=== PATIENT | female | born 2000 | race Caucasian/White ===

== ENCOUNTER 2020-11-21 11:55 | Emergency (ER) | payer OTHER ==
[~2020-11-21] VITALS: Ht 149.9 cm; Wt 63.0 kg
[2020-11-21] MEDS ORDERED: DEXT10TA4 PO (11:58)
[2020-11-21] MEDS ORDERED: KETOROLAC 30MG/ML VIAL IV STA (12:10)
[2020-11-21 12:33] LABS: BASOPHILS % 0.3 % (0.0-2.0); EOSINOPHILS % 0.6 % (0.0-5.0); HEMATOCRIT. 40.8 % (36.0-48.0); HEMOGLOBIN. 14.3 g/dL (12.0-16.0); LYMPHOCYTES % 26.8 % (20.0-50.0); MEAN CORPUSCULAR HEMOGLOBIN 32.4 pg (28.0-32.0); MEAN CORPUSCULAR VOLUME 92.3 fL (81.0-99.0); MEAN PLATELET VOLUME 6.7 fl (7.4-10.4); MONOCYTES % 5.9 % (2.0-8.0); NEUTROPHILS % 66.4 % (40.0-76.0); PLATELET 389 x1000/uL (130-400); RED BLOOD CELL COUNT 4.42 mill/uL (4.2-5.4); RED CELL DISTRIBUTION WIDTH 15.1 % (11.6-14.6)
[2020-11-21 12:38] LABS: CHLORIDE 104 mEq/L (98-107)
[2020-11-21 12:45] LABS: HCG SCREEN NEGATIVE
[2020-11-21 14:24] VITALS: BP 129/79
== END 2020-11-21 14:26 | disposition home or self-care (01) ==
LOC: ER 11:55
DX: R07.89 Other chest pain (principal); F12.10 Cannabis abuse, uncomplicated; Z88.3 Allergy status to other anti-infective agents
CPT/HCPCS: 36415; 71045; 80053; 84703; 85025; 96374; 99284; J1885

== ENCOUNTER 2020-11-21 20:04 | Emergency (ER) | payer OTHER ==
[~2020-11-21] VITALS: Ht 149.9 cm; Wt 63.0 kg
[~2020-11-21 20:04] MED LIST: DEXT10TA4 PO
[2020-11-21] MEDS ORDERED: ONDANSETRON HCL 4MG/2ML INJ IV STA (22:36)
[2020-11-21] MEDS ORDERED: LORAZEPAM 2MG/ML CPJ IV STA (22:36)
[2020-11-21] MEDS ORDERED: SODIUM CHLORIDE 0.9% 1,000 ML IV ONE (22:45)
[2020-11-21 23:39] LABS: BASOPHILS % 0.3 % (0.0-2.0); EOSINOPHILS % 0.3 % (0.0-5.0); HEMATOCRIT. 37.2 % (36.0-48.0); HEMOGLOBIN. 13.1 g/dL (12.0-16.0); LYMPHOCYTES % 21.8 % (20.0-50.0); MEAN CORPUSCULAR HEMOGLOBIN 32.6 pg (28.0-32.0); MEAN PLATELET VOLUME 6.8 fl (7.4-10.4); NEUTROPHILS % 69.6 % (40.0-76.0); PLATELET 349 x1000/uL (130-400); RED CELL DISTRIBUTION WIDTH 14.6 % (11.6-14.6)
[2020-11-21 23:45] LABS: CHLORIDE 104 mEq/L (98-107)
[2020-11-22 00:07] LABS: *BARBITURATES SCREEN URINE NEGATIVE (NEGATIVE); *BENZODIAZEPINES SCREEN URINE NEGATIVE (NEGATIVE)
[2020-11-22 00:08] LABS: CANNABINOID URINE SCREEN NEGATIVE (NEGATIVE); METHADONE URINE SCREEN NEGATIVE (NEGATIVE); OPIATES URINE SCREEN NEGATIVE (NEGATIVE); PHENCYCLIDINE URINE SCREEN NEGATIVE (NEGATIVE)
[2020-11-22 00:13] LABS: HCG SCREEN NEGATIVE
[2020-11-22 00:15] LABS: *AMPHETAMINES SCREEN URINE PRESUMTIVE POSITIVE (NEGATIVE); *COCAINE SCREEN URINE PRESUMTIVE POSITIVE (NEGATIVE)
[2020-11-22 03:21] VITALS: BP 121/81
== END 2020-11-22 03:22 | disposition home or self-care (01) ==
LOC: ER 20:07
DX: R42 Dizziness and giddiness (principal); F15.10 Other stimulant abuse, uncomplicated; F14.10 Cocaine abuse, uncomplicated; R00.2 Palpitations; F41.9 Anxiety disorder, unspecified; F12.10 Cannabis abuse, uncomplicated; E86.0 Dehydration; Z88.1 Allergy status to other antibiotic agents; Z79.899 Other long term (current) drug therapy
CPT/HCPCS: 36415; 80053; 80305; 84703; 85025; 93005; 96361; 96374; 96375; 99284; J2060; J2405; J7030